=== PATIENT | female | born 1975 | race Caucasian/White ===

== ENCOUNTER → 2018-04-29 | Outpatient (CLI) | payer BC | LOC: M WUC 13:09 | DX: M79.671 Pain in right foot (principal); M77.31 Calcaneal spur, right foot | CPT/HCPCS: 73630 ==

== ENCOUNTER → 2021-08-19 | Outpatient (REF) | payer BC | LOC: M WUC 18:00 | DX: N76.0 Acute vaginitis (principal) ==